=== PATIENT | female | born 1940 | race Caucasian/White ===

== ENCOUNTER 2021-04-03 18:29 | Inpatient (IN) ==
[2021-04-05] MEDS ORDERED: D5% in Water 1,000 ML IVC PRN (15:19)
[2021-04-05] MEDS ORDERED: Dextrose Gel 15 GM/37.5 ML TUBE PO PRN ×2 (15:19)
[2021-04-05] MEDS ORDERED: MOM Conc 10 ML UD.LIQ PO PRN (15:19)
[2021-04-05] MEDS ORDERED: Simethicone 80 MG TAB.CHEW PO PRN (15:19)
[2021-04-05] MEDS ORDERED: Acetaminophen 325 MG TABLET PO PRN (15:19)
[2021-04-05] MEDS ORDERED: *HR* Dextrose 50 % in Water (Syg) 50 ML SYRINGE IVP PRN (15:19)
[2021-04-05] MEDS: Ascorbic Acid 500 MG TABLET PO SCH (23:48)
[2021-04-06 08:47] LABS: INR 1.2; Prothrombin Time 13.9 Seconds (9.4-12.1)
[2021-04-06 08:47] LABS: VBG Chloride 104 mEq/L (98-107)
[2021-04-06 08:57] LABS: Basophils % 0.5 %; Eosinophils # 0.1 K/mcL (0.0-0.6); Hematocrit 29.4 % (35.3-44.9); Hemoglobin 9.2 g/dL (11.5-15.4); Immature Granulocytes % 0.3 % (0-4); Lymphocytes % 15.8 %; Mean Corpuscular HGB Conc 31.3 g/dL (31.6-35.5); Mean Corpuscular Hemoglobin 30.9 pg (28.0-33.3); Mean Corpuscular Volume 98.7 fL (83.0-100.0); Mean Platelet Volume 10.9 fL (9.4-12.4); Monocytes # 0.6 K/mcL (0.0-1.3); Monocytes % 8.6 %; Neutrophils # 4.6 K/mcL (1.6-8.9); Platelet Count 263 K/mcL (140-400); Red Blood Count 2.98 M/mcL (3.82-4.97); Red Cell Distribution Width 14.6 % (11.5-14.5); Segmented Neutrophils % 72.8 %; White Blood Count 6.4 K/mcL (4.3-11.1)
[2021-04-06 09:57] LABS: BUN/Creatinine Ratio 15 (6-26); Blood Urea Nitrogen 11 mg/dL (8-23); Calcium 8.3 mg/dL (8.6-10.3); Carbon Dioxide 32 mEq/L (23-29); Glucose 75 mg/dL (70-105); eGFR For African Americans > 60 (> 60); eGFR For Non-African Americans > 60 (> 60)
[2021-04-06] MEDS: Cholecalciferol (D-3) 1,000 UNIT (25MCG) TABLET PO SCH (10:22)
[2021-04-06] MEDS: allopurinoL 300 MG TABLET PO SCH (10:22)
[2021-04-06] MEDS: Ascorbic Acid 500 MG TABLET PO SCH ×2 (10:22→21:51)
[2021-04-06] MEDS: Cyanocobalamin (B-12) 1,000 MCG TABLET PO SCH (10:23)
[2021-04-06] MEDS: Aspirin Enteric Coated 325 MG Tablet PO SCH (10:23)
[2021-04-07] MEDS: Ascorbic Acid 500 MG TABLET PO SCH ×2 (07:57→20:53)
[2021-04-07] MEDS: Cholecalciferol (D-3) 1,000 UNIT (25MCG) TABLET PO SCH (07:58)
[2021-04-07] MEDS: Aspirin Enteric Coated 325 MG Tablet PO SCH (07:58)
[2021-04-07] MEDS: allopurinoL 300 MG TABLET PO SCH (07:58)
[2021-04-08] MEDS: Aspirin Enteric Coated 325 MG Tablet PO SCH (09:20)
[2021-04-08] MEDS: Ascorbic Acid 500 MG TABLET PO SCH ×2 (09:20→22:14)
[2021-04-08] MEDS: allopurinoL 300 MG TABLET PO SCH (09:20)
[2021-04-08] MEDS: Cholecalciferol (D-3) 1,000 UNIT (25MCG) TABLET PO SCH (09:20)
[2021-04-08] MEDS: Cyanocobalamin (B-12) 1,000 MCG TABLET PO SCH (09:23)
[2021-04-09] MEDS: Ascorbic Acid 500 MG TABLET PO SCH ×2 (07:57→20:45)
[2021-04-09] MEDS: Aspirin Enteric Coated 325 MG Tablet PO SCH (07:57)
[2021-04-09] MEDS: allopurinoL 300 MG TABLET PO SCH (07:58)
[2021-04-09] MEDS: Cholecalciferol (D-3) 1,000 UNIT (25MCG) TABLET PO SCH (07:58)
[2021-04-10] MEDS: *HR* Enoxaparin 40 MG/0.4 ML SYRINGE SQ SCH (05:46)
[2021-04-10] MEDS: allopurinoL 300 MG TABLET PO SCH (10:32)
[2021-04-10] MEDS: Aspirin Enteric Coated 325 MG Tablet PO SCH (10:33)
[2021-04-10] MEDS: Ascorbic Acid 500 MG TABLET PO SCH ×2 (10:33→20:53)
[2021-04-10] MEDS: Cholecalciferol (D-3) 1,000 UNIT (25MCG) TABLET PO SCH (10:33)
[2021-04-10] MEDS: Cyanocobalamin (B-12) 1,000 MCG TABLET PO SCH (10:37)
[2021-04-11] MEDS: *HR* Enoxaparin 40 MG/0.4 ML SYRINGE SQ SCH (05:44)
[2021-04-11 08:46] LABS: Hematocrit 29.1 % (35.3-44.9); Hemoglobin 9.4 g/dL (11.5-15.4); Mean Corpuscular HGB Conc 32.3 g/dL (31.6-35.5); Mean Corpuscular Hemoglobin 31.3 pg (28.0-33.3); Mean Platelet Volume 10.4 fL (9.4-12.4); Platelet Count 267 K/mcL (140-400); Red Cell Distribution Width 15.3 % (11.5-14.5); White Blood Count 7.3 K/mcL (4.3-11.1)
[2021-04-11] MEDS: Ascorbic Acid 500 MG TABLET PO SCH ×2 (08:59→20:16)
[2021-04-11] MEDS: Cholecalciferol (D-3) 1,000 UNIT (25MCG) TABLET PO SCH (09:00)
[2021-04-11] MEDS: Aspirin Enteric Coated 325 MG Tablet PO SCH (09:00)
[2021-04-11] MEDS: allopurinoL 300 MG TABLET PO SCH (09:00)
[2021-04-11 09:02] LABS: BUN/Creatinine Ratio 22 (6-26); Blood Urea Nitrogen 14 mg/dL (8-23); Calcium 8.5 mg/dL (8.6-10.3); Carbon Dioxide 30 mEq/L (23-29); Chloride 100 mEq/L (98-107); Glucose 89 mg/dL (70-105); Osmolality,Calculated 288 (280-300); Potassium 3.3 mEq/L (3.5-5.1); Sodium 139 mEq/L (136-145); eGFR For African Americans > 60 (> 60); eGFR For Non-African Americans > 60 (> 60)
[2021-04-11] MEDS: Thiamine (B-1) 100 MG, Folic Acid 1 MG, MVI, adult with vitamin K 10 ML in 0.9 % Sodi... IVPB SCH (14:35)
[2021-04-11] MEDS: D5% in 0.45% NACL 1,000 ML IVC SCH (14:36)
[2021-04-12] MEDS: D5% in 0.45% NACL 1,000 ML IVC SCH ×2 (00:18→08:02)
[2021-04-12] MEDS: *HR* Enoxaparin 40 MG/0.4 ML SYRINGE SQ SCH (06:39)
[2021-04-12] MEDS: allopurinoL 300 MG TABLET PO SCH (08:01)
[2021-04-12] MEDS: Cholecalciferol (D-3) 1,000 UNIT (25MCG) TABLET PO SCH (08:01)
[2021-04-12] MEDS: Ascorbic Acid 500 MG TABLET PO SCH ×2 (08:01→21:05)
[2021-04-12] MEDS: Aspirin Enteric Coated 325 MG Tablet PO SCH (08:01)
[2021-04-12] MEDS: Cyanocobalamin (B-12) 1,000 MCG TABLET PO SCH (08:02)
[2021-04-12] MEDS: Thiamine (B-1) 100 MG, Folic Acid 1 MG, MVI, adult with vitamin K 10 ML in 0.9 % Sodi... IVPB SCH (09:33)
[2021-04-13] MEDS: *HR* Enoxaparin 40 MG/0.4 ML SYRINGE SQ SCH (05:26)
[2021-04-13] MEDS: allopurinoL 300 MG TABLET PO SCH (07:51)
[2021-04-13] MEDS: Ascorbic Acid 500 MG TABLET PO SCH ×2 (07:52→20:04)
[2021-04-13] MEDS: Cholecalciferol (D-3) 1,000 UNIT (25MCG) TABLET PO SCH (07:52)
[2021-04-13] MEDS: Aspirin Enteric Coated 325 MG Tablet PO SCH (07:52)
[2021-04-13] MEDS: Thiamine (B-1) 100 MG, Folic Acid 1 MG, MVI, adult with vitamin K 10 ML in 0.9 % Sodi... IVPB SCH (09:29)
[2021-04-13 16:17] LABS: BUN/Creatinine Ratio 15 (6-26); Blood Urea Nitrogen 9 mg/dL (8-23); Calcium 8.1 mg/dL (8.6-10.3); Carbon Dioxide 23 mEq/L (23-29); Chloride 106 mEq/L (98-107); Glucose 74 mg/dL (70-105); Magnesium 1.6 mg/dL (1.6-2.6); Osmolality,Calculated 281 (280-300); Potassium 3.9 mEq/L (3.5-5.1); Sodium 137 mEq/L (136-145); eGFR For African Americans > 60 (> 60); eGFR For Non-African Americans > 60 (> 60)
[2021-04-14] MEDS: *HR* Enoxaparin 40 MG/0.4 ML SYRINGE SQ SCH (05:50)
[2021-04-14] MEDS: allopurinoL 300 MG TABLET PO SCH (08:02)
[2021-04-14] MEDS: Cholecalciferol (D-3) 1,000 UNIT (25MCG) TABLET PO SCH (08:02)
[2021-04-14] MEDS: Aspirin Enteric Coated 325 MG Tablet PO SCH (08:02)
[2021-04-14] MEDS: Ascorbic Acid 500 MG TABLET PO SCH ×2 (08:02→20:10)
[2021-04-14] MEDS: Cyanocobalamin (B-12) 1,000 MCG TABLET PO SCH (08:06)
[2021-04-15] MEDS: *HR* Enoxaparin 40 MG/0.4 ML SYRINGE SQ SCH (05:48)
[2021-04-15] MEDS: Aspirin Enteric Coated 325 MG Tablet PO SCH (10:30)
[2021-04-15] MEDS: allopurinoL 300 MG TABLET PO SCH (10:31)
[2021-04-15] MEDS: Cholecalciferol (D-3) 1,000 UNIT (25MCG) TABLET PO SCH (10:31)
[2021-04-15] MEDS: Ascorbic Acid 500 MG TABLET PO SCH ×2 (10:31→19:42)
[2021-04-16] MEDS: *HR* Enoxaparin 40 MG/0.4 ML SYRINGE SQ SCH (06:08)
[2021-04-16] MEDS: Ascorbic Acid 500 MG TABLET PO SCH ×2 (08:04→19:44)
[2021-04-16] MEDS: allopurinoL 300 MG TABLET PO SCH (08:05)
[2021-04-16] MEDS: Cholecalciferol (D-3) 1,000 UNIT (25MCG) TABLET PO SCH (08:05)
[2021-04-16] MEDS: Aspirin Enteric Coated 325 MG Tablet PO SCH (08:05)
[2021-04-16] MEDS: Cyanocobalamin (B-12) 1,000 MCG TABLET PO SCH (08:42)
[2021-04-17] MEDS: *HR* Enoxaparin 40 MG/0.4 ML SYRINGE SQ SCH (06:55)
[2021-04-17] MEDS: Aspirin Enteric Coated 325 MG Tablet PO SCH (08:04)
[2021-04-17] MEDS: Ascorbic Acid 500 MG TABLET PO SCH ×2 (08:04→20:36)
[2021-04-17] MEDS: Cholecalciferol (D-3) 1,000 UNIT (25MCG) TABLET PO SCH (08:04)
[2021-04-17] MEDS: allopurinoL 300 MG TABLET PO SCH (08:06)
[2021-04-17 17:52] LABS: Basophils % 0.7 %; Eosinophils # 0.1 K/mcL (0.0-0.6); Eosinophils % 0.9 %; Hemoglobin 8.7 g/dL (11.5-15.4); Immature Granulocytes % 0.3 % (0-4); Lymphocytes # 1.4 K/mcL (0.6-4.6); Lymphocytes % 23.9 %; Mean Corpuscular HGB Conc 32.2 g/dL (31.6-35.5); Mean Corpuscular Hemoglobin 31.4 pg (28.0-33.3); Mean Corpuscular Volume 97.5 fL (83.0-100.0); Monocytes # 0.7 K/mcL (0.0-1.3); Neutrophils # 3.6 K/mcL (1.6-8.9); Platelet Count 277 K/mcL (140-400); Red Blood Count 2.77 M/mcL (3.82-4.97); Red Cell Distribution Width 15.7 % (11.5-14.5); Segmented Neutrophils % 62.2 %; White Blood Count 5.7 K/mcL (4.3-11.1)
[2021-04-17 18:27] LABS: BUN/Creatinine Ratio 20 (6-26); Blood Urea Nitrogen 14 mg/dL (8-23); Calcium 8.4 mg/dL (8.6-10.3); Carbon Dioxide 23 mEq/L (23-29); Chloride 107 mEq/L (98-107); Glucose 117 mg/dL (70-105); Osmolality,Calculated 292 (280-300); Potassium 3.3 mEq/L (3.5-5.1); Sodium 140 mEq/L (136-145); eGFR For African Americans > 60 (> 60); eGFR For Non-African Americans > 60 (> 60)
[2021-04-18] MEDS: Aspirin Enteric Coated 325 MG Tablet PO SCH (07:48)
[2021-04-18] MEDS: *HR* Enoxaparin 40 MG/0.4 ML SYRINGE SQ SCH (07:48)
[2021-04-18] MEDS: Cholecalciferol (D-3) 1,000 UNIT (25MCG) TABLET PO SCH (07:49)
[2021-04-18] MEDS: Ascorbic Acid 500 MG TABLET PO SCH ×2 (07:50→20:08)
[2021-04-18] MEDS: allopurinoL 300 MG TABLET PO SCH (07:50)
[2021-04-18] MEDS: Cyanocobalamin (B-12) 1,000 MCG TABLET PO SCH (07:56)
[2021-04-19] MEDS: *HR* Enoxaparin 40 MG/0.4 ML SYRINGE SQ SCH (05:02)
[2021-04-19] MEDS: Ascorbic Acid 500 MG TABLET PO SCH ×2 (09:12→21:28)
[2021-04-19] MEDS: allopurinoL 300 MG TABLET PO SCH (09:12)
[2021-04-19] MEDS: Aspirin Enteric Coated 325 MG Tablet PO SCH (09:12)
[2021-04-19] MEDS: Cholecalciferol (D-3) 1,000 UNIT (25MCG) TABLET PO SCH (09:12)
[2021-04-20] MEDS: *HR* Enoxaparin 40 MG/0.4 ML SYRINGE SQ SCH (05:50)
[2021-04-20 07:41] VITALS: BP 162/70; PULSE 58; RESP 19; TEMP 97.9; O2SAT 97
[2021-04-20] MEDS: Aspirin Enteric Coated 325 MG Tablet PO SCH (07:59)
[2021-04-20] MEDS: Cholecalciferol (D-3) 1,000 UNIT (25MCG) TABLET PO SCH (07:59)
[2021-04-20] MEDS: Ascorbic Acid 500 MG TABLET PO SCH (08:00)
[2021-04-20] MEDS: Cyanocobalamin (B-12) 1,000 MCG TABLET PO SCH (08:04)
[2021-04-20] MEDS: allopurinoL 300 MG TABLET PO SCH (08:05)
== END 2021-04-20 12:38 | disposition home health service (06) | DRG 64 ==
LOC: INPPIK 04-05 19:09
PROVIDERS: ADMIT Family Medicine; ATTEND Family Medicine